=== PATIENT | male | born 1995 ===

== ENCOUNTER 2022-08-16 11:21 | Emergency (ER) | payer OTHER ==
[2022-08-16] MEDS ORDERED: Acetaminophen/oxyCODONE 325-5 MG Tab PO ONE (11:22)
[2022-08-16] MEDS ORDERED: Cyclobenzaprine 10 MG Tab PO ONE (11:22)
[2022-08-16] MEDS ORDERED: Ketorolac 30 MG/ML SDV IVPUSH ONE (11:47)
[2022-08-16] MEDS: Sodium Chloride 0.9% 10 ML Syringe FLUSH PRN ×2 (12:02→13:11)
[2022-08-16] MEDS ORDERED: HYDROmorphone 1 MG/ML Syringe IVPUSH ONE (13:05)
[2022-08-16] MEDS ORDERED: Acetaminophen/oxyCODONE 325-5 MG Tab ONE (13:45)
[2022-08-16] MEDS ORDERED: Cyclobenzaprine 10 MG Tab ONE (13:45)
== END 2022-08-16 13:55 | disposition home or self-care (01) ==
LOC: DL.ED 11:21
DX: M54.6 Pain in thoracic spine (principal); W10.8XXA Fall (on) (from) other stairs and steps, initial encounter
CPT/HCPCS: 72128; 96374; 96375; 96376; 99283; A9270; J1170; J1885; J3360; J3490